=== PATIENT | female | born 1965 ===

== ENCOUNTER 2023-08-14 13:14 | Outpatient (REF) | payer BC, SELFPAY ==
[2023-08-14 15:45] LABS: HCT 43.3 % (36.0-46.0); HGB 14.2 g/dL (11.2-15.7); MCH 28.9 pg (27.0-33.0); MCHC 32.8 % (32.0-36.0); MCV 88 fL (80-95); MPV 10.8 fL (8.0-11.0); Platelet Count 373 10^3/uL (130-400); RBC 4.92 10^6/uL (3.93-5.22); RDW 13.2 % (11.7-14.6); RDW-SD 42.9 fL; WBC 7.66 10^3/uL (4.4-10.8)
[2023-08-14 16:43] LABS: ALT 23 U/L (14-59); AST 23 U/L (15-37); Albumin 3.9 g/dL (3.4-5.0); Alkaline Phosphatase 64 U/L (46-116); BUN 14 mg/dL (7-18); Bilirubin, Total 0.35 mg/dL (0.2-1.0); CREATININE 0.9 mg/dL (0.55-1.02); Calcium 9.2 mg/dL (8.5-10.1); Calculated LDL 114 mg/dL (<100); Chloride 105 mmol/L (98-107); Cholesterol 207 mg/dL (<200); Glucose 99 mg/dL (74-106); HDL Cholesterol 84 mg/dL (40-60); Sodium 143 mmol/L (136-145); TSH 2.15 uIU/Ml (0.36-3.74); Total Protein 7.4 g/dL (6.4-8.2); Triglyceride 46 mg/dL (<150)
[2023-08-14 16:58] LABS: Hemoglobin A1C 5.6 % (<5.7)
== END 2023-08-14 13:15 | disposition home or self-care (01) ==
LOC: NCHCN 13:14
PROVIDERS: PCP Family Medicine; Visit Provider Family Medicine
DX: I10 Essential (primary) hypertension (principal); Z13.220 Encounter for screening for lipoid disorders; Z13.29 Encounter for screening for other suspected endocrine disorder; Z13.1 Encounter for screening for diabetes mellitus
CPT/HCPCS: 80053; 80061; 85027; 83036; 84443

== ENCOUNTER 2024-09-24 14:47 | Outpatient (REF) | payer BC, SELFPAY ==
[2024-09-24 15:13] LABS: HCT 47.8 % (36.0-46.0); HGB 15.3 g/dL (11.2-15.7); MCH 28.4 pg (27.0-33.0); MCHC 32.0 % (32.0-36.0); MCV 89 fL (80-95); MPV 10.3 fL (8.0-11.0); Platelet Count 385 10^3/uL (130-400); RBC 5.38 10^6/uL (3.93-5.22); RDW 12.9 % (11.7-14.6); RDW-SD 42.3 fL; WBC 6.85 10^3/uL (4.4-10.8)
[2024-09-24 16:31] LABS: ALT 116 U/L (14-59); AST 59 U/L (15-37); Albumin 4.2 g/dL (3.4-5.0); Alkaline Phosphatase 174 U/L (46-116); Anion Gap 7.1 mmol/L (3-11); BUN 20 mg/dL (7-18); Bilirubin, Total 0.5 mg/dL (0.2-1.0); CO2 31.9 mmol/L (21.0-32.0); Calcium 9.4 mg/dL (8.5-10.1); Calculated LDL 170 mg/dL (<100); Chloride 104 mmol/L (98-107); Cholesterol 278 mg/dL (<200); Estimated GFR 84.82 (mL/min/1.73m2); Glucose 100 mg/dL (74-106); HDL Cholesterol 96 mg/dL (>or=50); Potassium 4.2 mmol/L (3.5-5.1); Sodium 143 mmol/L (136-145); TSH (W/Ref FT4) 1.75 uIU/mL (0.36-3.74); Total Protein 7.5 g/dL (6.4-8.2); Triglyceride 63 mg/dL (<150)
== END 2024-09-24 14:48 | disposition home or self-care (01) ==
LOC: NCHCN 14:47
PROVIDERS: PCP Family Medicine; Visit Provider Family Medicine
DX: E04.1 Nontoxic single thyroid nodule (principal); Z13.220 Encounter for screening for lipoid disorders; Z13.0 Encounter for screening for diseases of the blood and blood-forming organs and certain disorders involving the immune mechanism; Z13.6 Encounter for screening for cardiovascular disorders
CPT/HCPCS: 80053; 80061; 85027; 84443